=== PATIENT | male | born 1940 | race Caucasian/White ===

== ENCOUNTER → 2018-01-16 | Day surgery (SDC) | payer MEDICARE ==
[2018-01-15 15:22] LABS: BASOPHILS % 0.2 % (0.0-1.0); EOSINOPHILS # (AUTO) 0.3 (0.0-0.4); EOSINOPHILS % 2.5 % (0.0-6.0); HEMATOCRIT 38.3 % (38.2-49.6); HEMOGLOBIN 12.2 g/dL (14.0-18.0); LYMPHOCYTES # (AUTO) 3.4 (1.0-3.2); LYMPHOCYTES % 28.1 % (18.0-39.1); MEAN CORPUSCULAR HEMOGLOBIN 27.4 pg (28-32); MEAN CORPUSCULAR HGB CONC 31.9 g/dL (31-35); MEAN CORPUSCULAR VOLUME 86.1 fL (81-99); MONOCYTES # (AUTO) 0.9 (0.2-0.8); MONOCYTES % 7.1 % (4.4-11.3); NEUTROPHILS # (AUTO) 7.4 (2.1-6.9); NEUTROPHILS % 61.7 % (38.7-80.0); PLATELET COUNT 351 x10e3/uL (140-360); RED BLOOD COUNT 4.45 x10e6/uL (4.3-5.7); RED CELL DISTRIBUTION WIDTH 20.5 % (11.7-14.4)
[2018-01-15 15:50] LABS: INR 0.89; PROTHROMBIN TIME 12.9 seconds (11.9-14.5)
[2018-01-15 15:51] LABS: PARTIAL THROMBOPLASTIN TIME 30.4 seconds (23.8-35.5)
[2018-01-15 15:58] LABS: BLOOD UREA NITROGEN 19 mg/dL (7-26); BUN/CREATININE RATIO 18 (6-25); CALCIUM 9.5 mg/dL (8.4-10.2); CARBON DIOXIDE 29 mmol/L (22-29); CHLORIDE 99 mmol/L (98-107); CREATININE, SERUM 1.06 mg/dL (0.72-1.25); EST GLOMERULAR FILTRATION RATE > 60 ML/MIN (60-); GLUCOSE 93 mg/dL (74-118); SODIUM 139 mmol/L (136-145)
[~2018-01-16] MED LIST: ATORVASTATIN CA10 MG PO; CARBIDOPA-LEVO1 EA10; CITALOPRAM HBR20 MG PO; FENTANYL CITRATE/PF 100MCG/2 ML INJ ONE; FINASTERIDE5 MG PO; FUROSEMIDE40 MG PO; GLUCAGON FOR INJ 1 MG VIAL ONE; HEMOCYTE PLUS1 EACH; HYOSCYAMINE SULFATE 0.5 MG/ML INJ ONE; IPRATROPIU0.2 MG/1 M NEB; LEVOTHYROXINE50 MCG PO; MELOXICAM7.5 MG PO; METHADONE HCL10 MG; MIDAZOLAM HCL 2 MG/2 ML VIAL ONE; MONTELUKAST SOD10 MG PO; MOVANTIK; NIFEDIPINE10 MG PO; OMEPRAZOLE40 MG; PROPOFOL IV EMULSION 10 MG/ML 50 ML VIAL ONE; RANITIDINE HCL300 M1; ZOLPIDEM TARTRA10 MG PO
[2018-01-16 13:15] VITALS: BP 145/95
--- NOTE | 2018-01-16 13:53 | Operative Report ---
DATE OF PROCEDURE: January 16, 2018 REFERRING PHYSICIAN: Dr. Hernando Lutz. PROCEDURES PERFORMED: 1. Esophagogastroduodenoscopy with esophageal dilatation and biopsies. 2. Colonoscopy with polypectomy. INDICATIONS FOR ESOPHAGOGASTRODUODENOSCOPY: Dysphagia. INDICATIONS FOR COLONOSCOPY: Colorectal cancer screening, iron deficiency anemia. MEDICATION: Patient was done under MAC. Please see anesthesiologist's note. PROCEDURE: With the patient in the left lateral decubitus position, the flexible fiberoptic Olympus gastroscope was introduced into the esophagus under direct visualization without any difficulty. There was some patchy erythema noted in the distal esophagus. There were 2 mild strictures noted, one in the cervical esophagus and one at the GE junction, and both were dilated to size 52-Bengali Pickard. The scope was then advanced with ease into the stomach, traversing a large approximately 10 cm hiatal hernia. There was a minute nodule in the hiatal hernia sac, and that was biopsied. Mucosa overlying the antrum and the body revealed some patchy erythema and low-grade to moderate edema, and biopsies were obtained and sent to stain for H. pylori. The pylorus was of normal contour and shape, was intubated with ease, and the scope was advanced all the way to the 2nd portion of the duodenum. The scope was then withdrawn slowly. Mucosa overlying the proximal 2nd portion and the duodenal bulb appeared to be within normal limits. The scope was then withdrawn back into the stomach and retroflexed, and the previously described large hiatal hernia was also noted in the retroflexed position. The cardia appeared to be within normal limits. The scope was then straightened out. It was subsequently withdrawn. Patient tolerated the procedure well. IMPRESSION: 1. Distal esophagitis, mild. 2. Esophageal stricture dilated to size 52-Bengali Pickard. 3. A 10 cm hiatal hernia. 4. Minute nodule, hiatal hernia sac, biopsied. 5. Gastritis biopsied. Biopsies sent to stain for H. pylori. PLAN: Follow up histology. Initiate Protonix 40 mg 1 p.o. q.a.m. a.c. Patient was then turned around and after adequate lubrication of the anal canal, a flexible fiberoptic Olympus colonoscope was inserted into the rectum with ease and advanced all the way to the cecum. Prep overall was poor with moderate to large amount of retained stools noted in the colon. A minute polyp was hot biopsied from the cecum. Whatever was visualized of the mucosa overlying the ascending colon appeared to be within normal limits. One polyp was snared from the transverse colon. Whatever was visualized of the descending appeared to be within normal limits. One polyp was snared from the sigmoid colon. The rectum grossly appeared to be within normal limits. The scope was then retroflexed into the distal rectum and small internal hemorrhoids were noted, none of which was actively bleeding. The scope was then straightened out. It was subsequently withdrawn. Patient tolerated procedure well. IMPRESSION: 1. Poor prep. 2. Cecal polyp hot biopsied. 3. Transverse colon polyp snared. 4. Sigmoid colon polyp snared. 5. Internal hemorrhoids, none actively bleeding. PLAN: Follow up histology. Patient will need a repeat colonoscopy after a better prep. Job#: [id number] EV cc:HERNANDO LUTZ MD
== END | disposition home or self-care (01) ==
LOC: OR 09:09
PROVIDERS: ATTEND Internal Medicine Gastroenterology
DX: K22.2 Esophageal obstruction (principal); D12.0 Benign neoplasm of cecum; D12.3 Benign neoplasm of transverse colon; D12.5 Benign neoplasm of sigmoid colon; K31.7 Polyp of stomach and duodenum; K29.50 Unspecified chronic gastritis without bleeding; K20.9 Esophagitis, unspecified; K21.9 Gastro-esophageal reflux disease without esophagitis; K59.03 Drug induced constipation; K44.9 Diaphragmatic hernia without obstruction or gangrene; K64.8 Other hemorrhoids; D50.9 Iron deficiency anemia, unspecified; I10 Essential (primary) hypertension; E03.9 Hypothyroidism, unspecified; I45.10 Unspecified right bundle-branch block; Z01.810 Encounter for preprocedural cardiovascular examination; Z01.812 Encounter for preprocedural laboratory examination; Z90.5 Acquired absence of kidney; Z85.819 Personal history of malignant neoplasm of unspecified site of lip, oral cavity, and pharynx; Z85.528 Personal history of other malignant neoplasm of kidney
CPT/HCPCS: 36415; 43239; 43450; 45384; 45385; 80048; 85025; 85610; 85730; 93005; J1610; J1980; J2250

== ENCOUNTER → 2018-03-07 | Day surgery (SDC) | payer MEDICARE ==
[2018-03-06 16:20] LABS: BASOPHILS # (AUTO) 0.1 (0.0-0.1); BASOPHILS % 0.4 % (0.0-1.0); EOSINOPHILS # (AUTO) 0.1 (0.0-0.4); HEMATOCRIT 40.5 % (38.2-49.6); HEMOGLOBIN 13.1 g/dL (14.0-18.0); LYMPHOCYTES % 30.7 % (18.0-39.1); MEAN CORPUSCULAR HEMOGLOBIN 28.4 pg (28-32); MEAN CORPUSCULAR HGB CONC 32.3 g/dL (31-35); MEAN CORPUSCULAR VOLUME 87.7 fL (81-99); MONOCYTES # (AUTO) 1.2 (0.2-0.8); MONOCYTES % 8.9 % (4.4-11.3); NEUTROPHILS # (AUTO) 7.6 (2.1-6.9); NEUTROPHILS % 58.5 % (38.7-80.0); PLATELET COUNT 359 x10e3/uL (140-360); RED BLOOD COUNT 4.62 x10e6/uL (4.3-5.7); RED CELL DISTRIBUTION WIDTH 16.6 % (11.7-14.4)
[~2018-03-07] MED LIST changes: -GLUCAGON FOR INJ 1 MG VIAL ONE; +KETAMINE HCL INJ 50 MG/ML 10 ML VIAL ONE; +LIDOCAINE HCL 2% LOCAL INJ 5 ML SDV VIAL INJ ONE
[2018-03-07 09:35] VITALS: BP 123/98
--- NOTE | 2018-03-07 12:43 | Operative Report ---
DATE OF PROCEDURE: March 07, 2018 REFERRING PHYSICIAN: Dr. Cony Hale. PROCEDURE PERFORMED: Colonoscopy and polypectomy. INDICATIONS FOR COLONOSCOPY: Patient with personal history of colon polyps, poor prep on previous colonoscopy. In for surveillance colonoscopy. MEDICATION: Patient was done under MAC. Please see anesthesiologist's note. PROCEDURE: With the patient in the left lateral decubitus position, the flexible fiberoptic Olympus colonoscope was inserted into the rectum with ease and advanced all the way to the cecum. The mucosa overlying the cecum appeared to be within normal limits. The ileocecal valve was intubated, and the scope was advanced into the terminal ileum. A minute ulcer was noted in the internal ileum, and that was biopsied. The scope was then withdrawn back into the colon. It was then withdrawn slowly. Mucosa overlying the ascending colon appeared to be within normal limits. One polyp was snared, 1 polyp was hot biopsied, and polypectomy site was hemoclipped in the transverse colon. Some minimal but scattered diverticular disease was noted. The descending colon and the sigmoid grossly appeared to be within normal limits. One polyp was hot biopsied and 1 polyp was snared from the rectum. The scope was then retroflexed into the distal rectum, and moderate-sized internal hemorrhoids were noted, none of which was actively bleeding. The scope was then straightened out. It was subsequently withdrawn. Patient tolerated the procedure well. IMPRESSION: 1. Minute ulcer terminal ileum biopsied. 2. Transverse colon polyps times 2, one snared and one hot biopsied, and polypectomy site was hemoclipped. 3. Diverticulosis, minimal. 4. Rectal polyps times 2, one snared and one hot biopsied. 5. Internal hemorrhoids, none actively bleeding. PLAN: Follow up histology. Initiate high-fiber low-fat diet. Initiate high-fiber supplement. Patient will need a followup colonoscopy in 3 years. Job#: [id number] EV cc:CONY HALE MD
== END | disposition home or self-care (01) ==
LOC: OR 05:52
PROVIDERS: ATTEND Internal Medicine Gastroenterology
DX: Z09 Encounter for follow-up examination after completed treatment for conditions other than malignant neoplasm (principal); D12.3 Benign neoplasm of transverse colon; K52.9 Noninfective gastroenteritis and colitis, unspecified; K62.1 Rectal polyp; K64.8 Other hemorrhoids; K57.30 Diverticulosis of large intestine without perforation or abscess without bleeding; C14.0 Malignant neoplasm of pharynx, unspecified; I10 Essential (primary) hypertension; G20 Parkinson's disease; K44.9 Diaphragmatic hernia without obstruction or gangrene; E03.9 Hypothyroidism, unspecified; I45.10 Unspecified right bundle-branch block; Z01.812 Encounter for preprocedural laboratory examination; Z90.5 Acquired absence of kidney; Z85.528 Personal history of other malignant neoplasm of kidney; Z87.01 Personal history of pneumonia (recurrent); Z87.891 Personal history of nicotine dependence
CPT/HCPCS: 36415; 45380; 45384; 45385; 85025; J1980; J2001; J2250; 45378

== ENCOUNTER → 2018-05-09 | Outpatient (CLI) | payer MEDICARE ==
[~2018-05-09] MED LIST changes: -FENTANYL CITRATE/PF 100MCG/2 ML INJ ONE; -HYOSCYAMINE SULFATE 0.5 MG/ML INJ ONE; -KETAMINE HCL INJ 50 MG/ML 10 ML VIAL ONE; -LIDOCAINE HCL 2% LOCAL INJ 5 ML SDV VIAL INJ ONE; -MIDAZOLAM HCL 2 MG/2 ML VIAL ONE; -PROPOFOL IV EMULSION 10 MG/ML 50 ML VIAL ONE
--- NOTE | 2018-05-09 17:19 | Diagnostic Imaging Report ---
FLUOROSCOPIC SMALL BOWEL SERIES INFORMATION TECHNOLOGY INSTRUCTOR(S): Aneesh Resendiz MD Indication: Non-infective gastroenteritis/colitis. Comparison: None. Radiation Dose: Total dose: 18.3 mGy Total fluoroscopy time: 0.4 minutes Procedure: Small bowel follow through exam was performed using oral barium. Preliminary image was obtained before administration of contrast and serial overhead images were obtained after administration of oral barium. Fluoroscopy was performed and spot images were obtained. DISCUSSION: STEWARD/STEWARDESS SMOKE ROOM: The bowel gas pattern is non-obstructive. Multiple surgical clips in the upper midline and left upper quadrant. Partially seen right hip arthroplasty. No acute bony abnormality. Degenerative changes of the lower lumbar spine. STOMACH: Limited evaluation of the stomach. There is a moderate sliding hiatal hernia. There is partial nonopacification along the wall of the greater curvature. SMALL BOWEL: Bulb and sweep are normal. Duodenal-jejunal junction is unremarkable. Small bowel loops are normal in caliber and distribution. There is no evidence of fistula, mucosal changes, stricture or dilation. The transit time was within normal limits. Spot image of the terminal ileum was unremarkable. COLON: The proximal colon is unremarkable. IMPRESSION: Moderate sliding hiatal hernia. Limited evaluation of the stomach. Partial non-opacification of the stomach along the greater curvature. It is unclear if this represents filling defect or poor contrast opacification. Per the patient, he recently had a EGD. Recommend correlation with EGD findings. Unremarkable appearance of the small bowel, terminal ileum, and proximal colon. Signed by: Dr. Aneesh Resendiz MD on 05/09/2018 5:15 PM
== END ==
LOC: DX 10:13
PROVIDERS: ATTEND Internal Medicine Gastroenterology
DX: K52.9 Noninfective gastroenteritis and colitis, unspecified (principal)
CPT/HCPCS: 74250